=== PATIENT | female | born 1950 | race Caucasian/White ===

== ENCOUNTER 2017-03-10 06:48 | Inpatient (IN) ==
--- NOTE | 2017-03-09 22:13 | Discharge Summary ---
<DariusIveth carsonAnnie L - Last Filed: 03/09/17 22:09> Date of Encounter: 03/09/17 - Discharge Diagnosis (1) Glenohumeral arthritis Priority: Primary Status: Acute Qualifiers: Laterality: left Qualified Code(s): M19.012 - Primary osteoarthritis, left shoulder (2) Status post total replacement of left shoulder Priority: Primary Status: Acute (3) HTN (hypertension) Priority: Secondary Status: Chronic Qualifiers: Hypertension type: essential hypertension Qualified Code(s): I10 - Essential (primary) hypertension - Discharge Medications Prescriptions: Ondansetron [Zofran] 4 mg PO Q8HR #30 tablet Home Medications: OxyCODONE Immed Rel [Roxicodone 5 MG] 5 - 10 mg PO Q6HR PRN #40 tablet 03/09/17 [Rx] Aspirin 81 mg PO DAILY 03/10/17 [History] Metoprolol XL (24 HR) Succ [Toprol Xl] 25 mg PO DAILY 03/10/17 [History] Ondansetron [Zofran] 4 mg PO Q8HR #30 tablet 03/11/17 [Rx] Allergies/Adverse Reactions: 3 Allergy/AdvReac Type Severity Reaction Status Date / Time No Known Allergies Allergy Verified 03/10/17 07:58 Primary care physician: Shant Braga DO - Patient Status Disposition: Home, Self-Care Condition: Good - Discharge Instructions Follow Up With: Shant Braga DO [Primary Care Provider] - - Hospital Course Hospital course: Ms. Cooper is a 66 year old female - Time Spent with Patient Total time spent providing and/or coordinating discharge services: <Sharath Berumen - Last Filed: 03/11/17 06:52> Date of Encounter: 03/11/17 Time of Encounter: 06:50 - Discharge Diagnosis (1) Glenohumeral arthritis Priority: Primary Status: Chronic Qualifiers: Laterality: left Qualified Code(s): M19.012 - Primary osteoarthritis, left shoulder (2) Status post total replacement of left shoulder Priority: Primary Status: Acute (3) HTN (hypertension) Status: Chronic Qualifiers: Hypertension type: essential hypertension Qualified Code(s): I10 - Essential (primary) hypertension Primary care physician: Shant Braga DO - Patient Status Functional capacity at discharge: independent ambulation Overall status at discharge: patient is progressing back to baseline - Hospital Course Hospital course: Ms. Cooper is a 66 year old female Status post left total shoulder replacement. The patient had an uneventful postoperative course. They received antibiotics and physical therapy and were discharged in stable condition. There will follow -up in the office in 2 weeks. - Time Spent with Patient Total time spent providing and/or coordinating discharge services:
--- NOTE | 2017-03-10 06:18 | History & Physical Report ---
Date of Encounter: 03/10/17 Time of Encounter: 06:18 24 Hour HP Update - Instructions Instructions: If the History and Physical is less than 30 days old and was completed prior to A.M. admission and or procedure and has NOT been updated on calendar day of procedure please complete this update prior to performing procedure. - Update Patient reports changes in Medical Condition: No Changes in examination, assessment, or condition: No Changes in Medication: No Preop tests/diagnostics Reviewed: Yes Surgery Remains Indicated: Yes Consent for Planned Operative Procedure(s) Verified: Yes - Pre-Operative Checklist Preoperative Checklist Indicated: No Prophylactic Antibiotic Ordered: Yes Is VTE Prophylaxis Indicated?: Yes
--- NOTE | 2017-03-10 07:18 | Anesthesia Evaluation PreOp ---
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 (Lumbar Stenosis, Right supraorbital neuralgia,) Other Medical History: Denies Any Significant HX Anesthesia History: No Prior Anesthetic Complications, Past Anesthesia (Back Sx , SARAH, Bladder Sx,) : No Alcohol Use: none Drug use: none Medications and Allergies OxyCODONE Immed Rel [Roxicodone 5 MG] 5 - 10 mg PO Q6HR PRN #40 tablet 03/09/17 [Rx] 3 Allergy/AdvReac Type Severity Reaction Status Date / Time No Known Allergies Allergy Verified 03/10/17 07:36 - Meds/Allergy Pre-op Review Medications Reviewed: Yes Allergies Reviewed: Yes Beta Blockers on Current Med List: Yes If Beta Blockers taken, Date/Time (Last Dose taken): ordered 25 mg metoprolol PO Anesthesia Results - Labs Laboratory Tests 02/27/17 02/27/17 02/27/17 13:02 13:02 13:02 WBC 5.9 Hgb 12.7 Hct 38.2 Plt Count 193 INR 1.0 Sodium 138 Potassium 3.8 Chloride 104 Carbon Dioxide 24 BUN 17 Creatinine 0.83 - Imaging EKG: image reviewed (SINUS RHYTHM WITH FIRST DEGREE AV BLOCK) Anesthesia Exam O2 Sat Height 1.68 m Height 1.68 m Weight 78.925 kg Weight 78.925 kg O2 Sat by Pulse Oximetry 98 Vital Signs Temp Pulse Resp BP Pulse Ox 98.0 F 72 18 168/80 98 03/10/17 07:34 03/10/17 07:34 03/10/17 07:34 03/10/17 07:34 03/10/17 07:34 Height: 5'6'' Weight: 174# NPO (# of Hours): > 8 hrs Pain Scale: 0 Pain Scale Used: Numeric (1 - 10) - HEENT Pupil (Motor): Pupils equal, EOMI Mallampati: II Teeth: Edentulous Denture Type: Upper: Complete, Lower: Complete Oral Opening: Greater than 3 - 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
[2017-03-10] MEDS ORDERED: Scopolamine Patch 1.5 MG PATCH.TD72 TD ONE (07:29)
[2017-03-10] MEDS ORDERED: Lidocaine -MPF 2% 2 ML VIAL ONE (07:38)
[2017-03-10] MEDS ORDERED: *HR* Midazolam HCl 5 MG/5 ML VIAL IVP ONE (07:38)
[2017-03-10] MEDS ORDERED: *HR* Propofol 200 MG/20 ML VIAL IVP ONE (07:40)
[2017-03-10] MEDS ORDERED: Propofol 500 MG/50 ML INFUS..BTL ONE (07:41)
[2017-03-10] MEDS ORDERED: Acetaminophen IV 1,000 MG/100 ML INFUS..BTL ONE (07:48)
[2017-03-10] MEDS ORDERED: Bupivacaine-MPF 0.25% 10 ML VIAL ONE (07:48)
[2017-03-10] MEDS ORDERED: ROPIVACAINE HCL/PF 0.5% 30 ML VIAL ONE (07:48)
[2017-03-10] MEDS ORDERED: CeFAZolin Pre 2,000 MG/100 ML 2,000 MG/100 ML BAG IVPB ONE (07:50)
[2017-03-10] MEDS ORDERED: *HR* HYDROmorphone (PF) 1 MG/ML SYRINGE IVP PRN ×2 (07:54→10:47)
[2017-03-10] MEDS ORDERED: *HR* Labetalol 20 MG/4 ML SYRINGE IVP PRN (07:54)
[2017-03-10] MEDS ORDERED: *HR* Promethazine 25 MG/ML VIAL IVP PRN (07:54)
[2017-03-10] MEDS ORDERED: Albuterol 2.5 MG/3 ML NEBULIZER ONE (07:58)
[2017-03-10] MEDS ORDERED: Ringers Solution, Lactated 1,000 ML IVC SCH ×2 (08:00→10:47)
--- NOTE | 2017-03-10 08:21 | Anesthesia Procedures ---
Date of Encounter: 03/10/17 Time of Encounter: 08:19 Procedures: Anesthesia - Nerve Block Procedure Date: 03/10/17 Time: 08:19 Allergies/Adv Reactions: nka Pre-op Diagnosis: Left shoulder RC arthropathy Surgical Procedure: Left TSA Checklist: Correct Patient Identifier, Correct procedure, History checked Correct side: Left Blood Thinner: No Monitor Applied: EKG, BP, Pulse Oximetry Supplemental Oxygen via Nasal Cannula (L/min): 2 Sedation: Versed (mg): 5 Indication: Post Op Analgesia Pre-op Neuro Deficits: No Block Type: Interscalene, Other (CP) Catheter placed: No Sterile Technique: Yes Ultrasound used: Yes Anatomy identified: Yes Visual spread of Local: Yes Neuro Stimulation: No Blood on Needle Aspiration: No Smooth Injection of Local: Yes Pain with Injection of Local: No Prep: Chlorhexadine Needle: 22 x 50 mm Stimuplex Local: Ropivacaine, Other (10mg decadron, 0.25% bupivacaine 10mL) Volume (cc): 35 Number of Attempts: 1 Complications: None/effective block Vitals: Vital Signs/O2 Sat/Glucose, Most Recent Temp Pulse Resp BP Pulse Ox 98.0 F 73 18 139/70 98 03/10/17 08:10 03/10/17 08:16 03/10/17 08:16 03/10/17 08:16 03/10/17 08:16
[2017-03-10] MEDS ORDERED: Dexamethasone 4 MG/ML VIAL ONE (08:27)
[2017-03-10] MEDS ORDERED: Ondansetron 4 MG/2 ML VIAL ONE (08:27)
--- NOTE | 2017-03-10 09:35 | Orthopedic Operative Note ---
Date of procedure: 03/10/17 Pre-op diagnosis: Left Shoulder arthritis Procedure: Procedure: Left Total Shoulder Replacement biceps tenodesis Estimated blood loss: 100 cc Hardware:Arthrex glenoid: small keel Eclipse 40 screw, 43 x 16 head, 43 trunnion, small keel; 3, 4.75 swivel lock suture anchors Exam Under anesthesia:restricted Procedural Notes: Grade 4 arthritic changes humeral head glenoid socket. Operative procedure: The patient was brought to the operating room and placed on the operating room table. After general anesthesia was administered the operative shoulder was examined. Findings were noted. The patient was placed in the modified beachchair position. All pressure points were padded appropriately. And the head was stabilized in the neutral position. The operative extremity was prepped and draped in the sterile surgical fashion. The patient received IV antibiotics prior to skin incision. A standard deltopectoral approach was made to the operative shoulder. Incision was made to the skin and subcutaneous tissue,hemo stasis was obtained with Bovie cautery. Using careful blunt dissection the cephalic vein was identified and mobilized medially. The deltopectoral interval was developed and the clavipectoral fascia was incised. The subscap was released off the lesser tuberosity and tagged with #2 FiberWire suture. The humerus was dislocated osteophytes were present were removed and the humeral cut was made along the anatomic neck. Patient had grade 4 arthritic changes humeral head. Anterior and posterior Bankart retractors were placed to expose the glenoid. Patient had grade 4 arthritic changes glenoid socket. The small glenoid guide was seated and the centering hole was made. It was reamed with the appropriate reamer. The finishing guide was seated superior and inferior drill holes were placed. Patient punch was seated trial was seated had good fit and fixation. The small keeled glenoid component was cemented in place held with digital pressure until cemented hardened. A good fit and fixation. The humerus was redislocated and prepared it was sized guide was seated centering pin was placed in the depth was 30, baseplate was seated cage screw was locked in place. Trial with a 43 had good stability good motion. Trial head was removed real 43 x 16 head was seated and secured shoulder had good motion good stability. The subscap was repaired with #2 fiber tape and 3 4.75 swivel lock suture anchors. The biceps was incorporated and tenodesed with the suture ends. Shoulder was closed by the PA. The deltopectoral interval was closed with a running #1 PDS suture, subcutaneous tissue was irrigated and closed with 0 PDS suture, the skin was closed with Dermabond. The patient was placed in a sterile dressing, abduction brace and extubated. The patient was then transferred to the recovery room in stable condition. Anesthesia: GETA Surgeon: Sharath Berumen Condition: stable Disposition: PACU
[2017-03-10 10:18] LABS: Hemoglobin 11.8 g/dL (11.5-15.4)
--- NOTE | 2017-03-10 10:20 | Anesthesia Evaluation Post Op ---
Date of Encounter: 03/10/17 Time of Encounter: 10:17 - Vital Signs Vital Signs: vss - Lungs Lungs: Clear Ascult./Percussion - Airway Airway: Non-obstructed - Cardiovascular Baseline Rhythm - Mental Status Mental Status: Asleep with brisk response to light stimulation - Pain Pain Scale used: Shirlene (Faces) - Nausea Vomiting Nausea Vomiting: Not Present - Hydration Hydration: Ice chips - Discharge PostOp Status: Transfer Patient to floor
--- NOTE | 2017-03-10 10:31 | Physician Discharge Referral ---
Home Health/Hosp Referral Info Transfer to: Home Health Provider in Charge Post Discharge: PCP - Diagnosis (1) Glenohumeral arthritis Priority: Primary Status: Chronic (2) Status post total replacement of left shoulder Priority: Primary Status: Acute (3) HTN (hypertension) Priority: Secondary Status: Chronic - Respiratory Orders None Smoking Cessation: Smoking cessation has been advised. For more information, call the [employer] Tobacco Quit Line at 5-681-MPZD-NOW. - Diet/Nutrition Diet/Nutrition Orders: Regular - Activity Activity Orders: Up ad ria, Ambulate - Services Needed Following services are medically necessary services: Nursing, Home Health Aide, Physical Therapy, Occupational Therapy Home Care Orders: Opsite placed. Keep dressing intact until first follow up appointment. If > 50% saturated,notify office, remove dressing and place appropriate dressing back in place. Dressing is water resistant, not water-proof. OK to shower, but do not get dressing wet. PT/OT. NWB to affected upper extremity. Follow Shoulder Precautions x 6 weeks. Stay in brace during activity and at night. Remove brace during exercises. ICE and elevate extremity frequently throughout the day. - Transfer Medications Prescriptions: OxyCODONE Immed Rel [Roxicodone 5 MG] 5 - 10 mg PO Q6HR PRN #40 tablet PRN Reason: Pain Home Medications: OxyCODONE Immed Rel [Roxicodone 5 MG] 5 - 10 mg PO Q6HR PRN #40 tablet 03/09/17 [Rx] Aspirin 81 mg PO DAILY 03/10/17 [History] Metoprolol XL (24 HR) Succ [Toprol Xl] 25 mg PO DAILY 03/10/17 [History] Allergies/Adverse Reactions: 3 Allergy/AdvReac Type Severity Reaction Status Date / Time No Known Allergies Allergy Verified 03/10/17 07:58 Certification: Further, I certify that my clinical findings support that this patient is homebound (i.e. absences from home require considerable and taxing effort and are for medical reasons or buddhist services or infrequently or short duration when for other reasons) because: Homebound Reason: Post-surgery restriction and or conditions limit ability to leave home Attestation: My signature below is to certify that this patient is under my care and that I, or nurse practitioner, or a physician's assistant professor of art working with me, has a face-to -face encounter with this patient.
[2017-03-10] MEDS ORDERED: *HR* OxyCODONE Immed Rel 5 MG TABLET PO PRN (10:47)
[2017-03-10] MEDS ORDERED: Naloxone 0.4 MG/ML INJ IVP PRN (10:47)
[2017-03-10] MEDS ORDERED: MOM Conc 10 ML UD.LIQ PO PRN (10:47)
[2017-03-10] MEDS ORDERED: Ondansetron 4 MG/2 ML VIAL IVP PRN (10:47)
[2017-03-10] MEDS: ceFAZolin 2,000 MG in D5% in Water 100 ML IVPB SCH ×2 (12:06→18:13)
[2017-03-10] MEDS: Aspirin 81 MG TAB.CHEW PO SCH (12:06)
[2017-03-10] MEDS: Metoprolol XL (24 HR) Succ 25 MG TAB.ER.24H PO SCH (12:07)
[2017-03-10] MEDS ORDERED: *HR* Enoxaparin 30 MG/0.3 ML SYRINGE SQ SCH (18:00)
[2017-03-10] MEDS: *HR* Enoxaparin 30 MG/0.3 ML SYRINGE SQ SCH (18:14)
[2017-03-10] MEDS ORDERED: Temazepam 15 MG CAPSULE PO PRN (21:00)
[2017-03-10] MEDS ORDERED: Sennosides 8.6 MG TABLET PO PRN (21:00)
[2017-03-11] MEDS: *HR* Enoxaparin 30 MG/0.3 ML SYRINGE SQ SCH (06:30)
--- NOTE | 2017-03-11 06:52 | Orthopedics Progress Note ---
Date of Encounter: 03/11/17 Time of Encounter: 06:52 - Assessment and Plan (1) Glenohumeral arthritis Current Visit: Yes Status: Chronic Qualifiers: Laterality: left Qualified Code(s): M19.012 - Primary osteoarthritis, left shoulder (2) Status post total replacement of left shoulder Current Visit: Yes Status: Acute (3) HTN (hypertension) Current Visit: Yes Status: Chronic Qualifiers: Hypertension type: essential hypertension Qualified Code(s): I10 - Essential (primary) hypertension Subjective Interval history: Patient was seen this morning doing well without complaints. Afebrile vital signs stable. Operative extremity: Neurovascularly intact Dressing clean dry and intact Calves nontender Assessment and plan: Continue with postoperative care Discharged today Objective Vital signs: Vital Signs Temp Pulse Resp BP Pulse Ox 03/11/17 06:48 98.3 F 71 18 144/75 95 03/11/17 04:55 98.7 F 69 14 118/61 100 03/11/17 01:30 98.1 F 93 16 131/69 03/10/17 19:58 97.4 F L 65 16 142/72 94 03/10/17 17:33 98.3 F 69 16 118/71 94 03/10/17 14:01 97.8 F 69 16 135/60 97 03/10/17 12:56 97.9 F 70 17 137/60 97 03/10/17 11:50 97.5 F L 69 18 135/61 96 03/10/17 11:20 97.5 F L 67 17 132/52 96 03/10/17 10:48 97.7 F 51 17 130/76 97 03/10/17 10:30 97.4 F L 53 16 140/68 100 03/10/17 10:20 97.4 F L 56 18 111/77 100 03/10/17 10:10 57 16 115/65 100 03/10/17 10:00 56 18 116/63 98 03/10/17 09:50 97.8 F 68 16 119/63 93 03/10/17 08:16 73 18 139/70 98 03/10/17 08:10 98.0 F 72 18 168/80 98 03/10/17 08:04 74 16 139/70 95 03/10/17 07:34 98.0 F 72 18 168/80 98 Intake and Output 03/10/17 03/10/17 03/11/17 15:59 23:59 07:59 Intake Total 300 / 300 240 / 240 Output Total 100 / 100 Balance 200 / 200 240 / 240 Intake: IV Fluids 200 / 200 Ancef Premix 2,000 MG/100 100 / 100 ML 2,000 mg In 100 ml @ 200 mls/hr IVPB PREOP ONE Rx#:[id number] Ancef 2,000 MG In 100 / 100 Dextrose 5% 100 ML @ 200 mls/hr IVPB Q8HR LORE Rx#: [id number] Oral 100 / 100 240 / 240 Output: Estimated Blood Loss 100 / 100 Other: Meal Lunch Dinner Percent of Meal Consumed 100% 50% Weight 78.925 kg 180 kg Patient Weight 03/11/17 23:59 Weight 180 kg - Labs CBC & BMP: 03/10/17 10:11 - VTE Documentation of Mechanical Device: Venous foot pump, device Consult Discharge Plan - Plan Referrals: Shant Braga DO [Primary Care Provider] - Prescriptions: Ondansetron [Zofran] 4 mg PO Q8HR #30 tablet
[2017-03-11 08:11] LABS: Hematocrit 33.2 % (35.3-44.9); Hemoglobin 11.2 g/dL (11.5-15.4)
[2017-03-11] MEDS: Metoprolol XL (24 HR) Succ 25 MG TAB.ER.24H PO SCH (09:42)
[2017-03-11] MEDS: Aspirin 81 MG TAB.CHEW PO SCH (09:42)
[2017-03-11] MEDS: *HR* OxyCODONE Immed Rel 5 MG TABLET PO PRN ×2 (11:01→15:41)
[2017-03-11 11:40] VITALS: BP 169/70
--- NOTE | 2017-03-11 12:25 | Event Note ---
Date of Encounter: 03/11/17 Time of Encounter: 12:24 PCR - Left TSR - Eclipse Study - 03/10/17 POD#1 Patient seen at bedside. Comorbidities: HTN, GHA Labs: Stable Pain control: adequate *Allergy to Narcotics - Oxycodone ok Participating in PT. All questions and concerns addressed. Educated on use of incentive spirometer, ambulation, and hydration. Patient educated on post-operative restrictions and care. Addressed: Discharge plans D/C plan:. Home 03/11 with HH - Given Percocet and Zofran in addition to other medication*
== END 2017-03-11 16:00 | disposition home or self-care (01) | DRG 483 ==
LOC: SAMDAY 06:48 → 3NENU 10:48
PROVIDERS: ADMIT Orthopaedic Surgery; ATTEND Orthopaedic Surgery